=== PATIENT | female | born 1975 | race Two or more races ===

== ENCOUNTER 2017-03-01 09:55 | Emergency (ER) | payer MEDICAID, SELFPAY ==
[~2017-03-01] VITALS: Ht 152.4 cm; Wt 72.1 kg
[2017-03-01] MEDS ORDERED: ONDANSETRON 2MG/ML, 2ML IVPush ONE (11:30)
[2017-03-01] MEDS ORDERED: SODIUM CHLORIDE 0.9% 1,000ML IVBOLUS ONE ×2 (11:30)
[2017-03-01] MEDS ORDERED: MORPHINE SULFATE 4 MG/ML, 1ML IVPush PRN (11:30)
[2017-03-01 11:34] LABS: PH, VENOUS 7.457 pH (7.320-7.420)
[2017-03-01 11:36] LABS: HEMATOCRIT 29.9 % (34.6-47.8); HEMOGLOBIN 9.1 g/dL (11.7-16.4); WHITE BLOOD COUNT 16.4 x10^3/uL (3.4-10)
[2017-03-01 11:48] LABS: ASPARTATE AMINO TRANSFERASE 27 U/L (15-37); BLOOD UREA NITROGEN 6 mg/dL (7-18)
[2017-03-01] MEDS ORDERED: ONDANSETRON 2MG/ML, 2ML ONE (11:50)
[2017-03-01] MEDS ORDERED: MORPHINE SULFATE 4 MG/ML, 1ML ONE (11:50)
[2017-03-01 12:11] LABS: DIFF TOTAL CELLS COUNTED 100 CELL DIFF
[2017-03-01 12:13] LABS: VERIFY COUNTS? YES
[2017-03-01 12:14] LABS: ANISOCYTOSIS 1+; MICROCYTOSIS 2+; POLYCHROMASIA 1+
[2017-03-01 12:32] VITALS: BP 131/78
[2017-03-01 13:53] LABS: PATH.CAST-FLAG NOT PRESENT; SPERM-FLAG NOT PRESENT; SRC-FLAG NOT PRESENT; XTAL-FLAG NOT PRESENT; YLC-FLAG NOT PRESENT
== END 2017-03-01 14:47 | disposition home or self-care (01) ==
LOC: ED 10:54
DX: N30.01 Acute cystitis with hematuria (principal); R73.9 Hyperglycemia, unspecified
CPT/HCPCS: 36415; 80053; 81001; 82010; 82803; 83690; 85025; 87077; 87086; 87186; 96361; 96374; 96375; 99285; J2405; J7030

== ENCOUNTER 2017-04-04 21:38 | Inpatient (IN) | payer MEDICAID ==
[~2017-04-04] VITALS: Ht 152.4 cm; Wt 71.0 kg
[2017-04-04] MEDS ORDERED: SODIUM CHLORIDE FLUSH 10ML SYR IVF ONE (22:00)
[2017-04-04] MEDS ORDERED: SODIUM CHLORIDE 0.9% 1,000ML IVBOLUS ONE ×2 (22:00→23:30)
[2017-04-04 22:15] LABS: PH, VENOUS 7.442 pH (7.320-7.420)
[2017-04-04 22:25] LABS: HEMATOCRIT 34.2 % (34.6-47.8); HEMOGLOBIN 10.6 g/dL (11.7-16.4)
[2017-04-04 22:30] LABS: ASPARTATE AMINO TRANSFERASE 18 U/L (15-37); BLOOD UREA NITROGEN 7 mg/dL (7-18)
[2017-04-04] MEDS ORDERED: ACETAMINOPHEN 500 MG TABLET ONE (23:19)
[2017-04-04] MEDS ORDERED: CEFTRIAXONE PMX 1GM/50ML 50 ML IVPB ONE (23:30)
[2017-04-04] MEDS ORDERED: ACETAMINOPHEN 325 MG TABLET PO ONE (23:30)
[2017-04-04] MEDS ORDERED: ACETAMINOPHEN 500 MG TABLET PO ONE (23:30)
[2017-04-04] MEDS ORDERED: CEFTRIAXONE PMX 1GM/50ML 50 ML ONE (23:43)
[2017-04-05] MEDS ORDERED: SODIUM CHLORIDE 0.9% 1,000 ML IV ONE (01:29)
[2017-04-05] MEDS ORDERED: ONDANSETRON 2MG/ML, 2ML IVPush PRN ×2 (01:30→05:00)
[2017-04-05] MEDS ORDERED: POLYETHYLENE GLYCOL 17 GM PACKET PO PRN (05:00)
[2017-04-05] MEDS ORDERED: DEXTROSE 50%, 50ML SYRINGE IVPush PRN (05:00)
[2017-04-05] MEDS ORDERED: DEXTROSE 4 GM TAB.CHEW PO PRN (05:00)
[2017-04-05] MEDS ORDERED: GLUCAGON 1 MG IM PRN (05:00)
[2017-04-05] MEDS ORDERED: DOCUSATE 100 MG CAPSULE PO PRN (05:00)
[2017-04-05] MEDS ORDERED: PROMETHAZINE 25 MG/ML, 1ML IM PRN (05:00)
[2017-04-05] MEDS ORDERED: BISACODYL 10 MG SUPP PR PRN (05:00)
[2017-04-05] MEDS ORDERED: ACETAMINOPHEN 325 MG TABLET PO PRN (05:00)
[2017-04-05] MEDS: CEFTRIAXONE PMX 1GM/50ML 50 ML IV SCH (05:10)
[2017-04-05] MEDS: INSULIN DETEMIR 100 UNITS/ML, PEN SQ-INSULIN SCH ×2 (05:52→17:19)
[2017-04-05] MEDS: NICOTINE 14MG/24 HR PATCH.TD24 TD SCH (05:52)
[2017-04-05 05:53] VITALS: BP 102/65
[2017-04-05] MEDS: ENOXAPARIN 40 MG/0.4 ML SQ SCH (05:53)
[2017-04-05 06:30] LABS: HEMATOCRIT 34.3 % (34.6-47.8); HEMOGLOBIN 10.6 g/dL (11.7-16.4); WHITE BLOOD COUNT 16.2 x10^3/uL (3.4-10)
[2017-04-05 06:41] LABS: ASPARTATE AMINO TRANSFERASE 26 U/L (15-37); BLOOD UREA NITROGEN 4 mg/dL (7-18); TOTAL IRON BINDING CAPACITY 386 mcg/dL (250-450)
[2017-04-05 07:56] VITALS: BP 111/74
[2017-04-05] MEDS: INSULIN ASPART 100 UNITS/ML, PEN SQ-INSULIN SCH ×4 (08:05→21:06)
[2017-04-05] MEDS ORDERED: POTASSIUM CHLORIDE 20 MEQ TAB.ER.PRT PO ONE (09:30)
[2017-04-05] MEDS: SODIUM CHLORIDE FLUSH 10ML SYR IVF SCH ×2 (11:19→20:57)
[2017-04-05] MEDS: SODIUM CHLORIDE 0.9% 1,000 ML IV SCH ×2 (11:35→20:05)
[2017-04-05] MEDS: FERROUS SULFATE 325 MG TABLET PO SCH ×2 (12:25→17:18)
[2017-04-05 13:35] VITALS: BP 144/79
[2017-04-05 19:18] LABS: OCCBLD OBC PASS
[2017-04-05 20:09] VITALS: BP 149/82
[2017-04-06 02:43] VITALS: BP 142/87
[2017-04-06] MEDS: SODIUM CHLORIDE 0.9% 1,000 ML IV SCH (03:57)
[2017-04-06] MEDS: ENOXAPARIN 40 MG/0.4 ML SQ SCH (04:53)
[2017-04-06] MEDS: CEFTRIAXONE PMX 1GM/50ML 50 ML IV SCH (04:53)
[2017-04-06] MEDS: NICOTINE 14MG/24 HR PATCH.TD24 TD SCH (04:53)
[2017-04-06 05:38] LABS: ASPARTATE AMINO TRANSFERASE 19 U/L (15-37); BLOOD UREA NITROGEN 4 mg/dL (7-18)
[2017-04-06 05:46] LABS: HEMATOCRIT 31.5 % (34.6-47.8); HEMOGLOBIN 9.7 g/dL (11.7-16.4); WHITE BLOOD COUNT 11.6 x10^3/uL (3.4-10)
[2017-04-06] MEDS: INSULIN DETEMIR 100 UNITS/ML, PEN SQ-INSULIN SCH (06:00)
[2017-04-06 07:58] VITALS: BP 120/78
[2017-04-06] MEDS: SODIUM CHLORIDE FLUSH 10ML SYR IVF SCH (09:04)
[2017-04-06] MEDS: INSULIN ASPART 100 UNITS/ML, PEN SQ-INSULIN SCH ×2 (09:04→10:58)
[2017-04-06] MEDS: FERROUS SULFATE 325 MG TABLET PO SCH (09:04)
[2017-04-06] MEDS ORDERED: CIPR500T3 PO (12:04)
[2017-04-06 12:23] VITALS: BP 114/76
== END 2017-04-06 14:42 | disposition home or self-care (01) | DRG 872 ==
LOC: ED 23:04 → EDIP 04-05 01:29 → 4NOR 04-05 02:20
PROVIDERS: ADMIT Internal Medicine; ATTEND Internal Medicine
DX: A41.9 Sepsis, unspecified organism (principal); E11.65 Type 2 diabetes mellitus with hyperglycemia; E87.1 Hypo-osmolality and hyponatremia; N30.90 Cystitis, unspecified without hematuria; D53.9 Nutritional anemia, unspecified; E86.0 Dehydration; Z87.440 Personal history of urinary (tract) infections; Z87.891 Personal history of nicotine dependence; Z91.14 Patient's other noncompliance with medication regimen
CPT/HCPCS: 36415; 71010; 80053; 81001; 82010; 82272; 82803; 82962; 83036; 83540; 83550; 83605; 83735; 84145; 84703; 85025; 87040; 87077; 87086; 87147; 87186; 96361; 96365; 96372; J0696; J1650; J1815; J7030

== ENCOUNTER 2019-08-11 04:14 | Emergency (ER) | payer MEDICAID ==
[~2019-08-11] VITALS: Ht 154.9 cm; Wt 68.8 kg
[~2019-08-11 04:14] MED LIST: CIPR500T3 PO
--- NOTE | 2019-08-11 04:26 | NUR ---
Pt ambulatory to room. Pt reports lower right dental pain x2 days. No fevers or vomiting at home. Poor dentition noted throughout. Pt has been taking advil and tylenol at home. Pt in gown. Call light in place.
[2019-08-11] MEDS ORDERED: LORazepam 1MG TABLET PO ONE (05:00)
[2019-08-11] MEDS ORDERED: KETOROLAC 30 MG/1 ML IM ONE (05:00)
[2019-08-11] MEDS ORDERED: LORazepam 1MG TABLET ONE (05:13)
[2019-08-11] MEDS ORDERED: KETOROLAC 30 MG/1 ML ONE (05:13)
--- NOTE | 2019-08-11 05:27 | NUR ---
Pt medicated per SEP. POC BS 263
--- NOTE | 2019-08-11 05:47 | NUR ---
[place] provided. Assist RN at bedside for US guided PIV.
[2019-08-11 06:00] VITALS: BP 154/86
[2019-08-11] MEDS ORDERED: SODIUM CHLORIDE 0.9% 1,000ML IVBOLUS ONE (06:00)
[2019-08-11] MEDS ORDERED: SODIUM CHLORIDE FLUSH 10ML SYR IVF ONE (06:00)
--- NOTE | 2019-08-11 06:06 | NUR ---
PIV placed by assist RN. Fluids started. Pt aware of need for urine sample.
[2019-08-11 06:27] LABS: MEAN CORPUSCULAR HEMOGLOBIN 18.6 pg (27.0-34.8); MEAN CORPUSCULAR VOLUME 61.9 fL (80-100); MEAN PLATELET VOLUME 8.2 fL (7.4-10.4); PLATELET COUNT 425 x10^3/uL (130-400); RED BLOOD COUNT 4.88 x10^6/uL (3.82-5.3); RED CELL DISTRIBUTION WIDTH 18.3 % (9.6-15.2)
[2019-08-11 06:30] LABS: ALANINE AMINOTRANSFERASE 17 U/L (12-78); ALBUMIN 2.7 g/dL (3.4-5.0); ANION GAP 9 mmol/L (5-15); CHLORIDE 111 mmol/L (98-107); CREATININE 0.64 mg/dL (0.55-1.02)
[2019-08-11 06:33] LABS: ALKALINE PHOSPHATASE 104 U/L (45-117); BILIRUBIN,TOTAL 0.2 mg/dL (0.2-1.0); CALCIUM 8.4 mg/dL (8.5-10.1); TOTAL PROTEIN 7.2 g/dL (6.4-8.2)
--- NOTE | 2019-08-11 06:33 | NUR ---
Pt sleeping on gurney. HR down to 102.
[2019-08-11 06:38] LABS: O2 FLOW 0 L/min; PH, VENOUS 7.399 pH (7.320-7.420)
[2019-08-11 06:47] LABS: ANISOCYTOSIS 1+; BASOPHILS # (AUTO) 0.07 x10^3/uL (0-0.1); BASOPHILS % (AUTO) 1 % (0-1); EOSINOPHILS % (AUTO) 3 % (1-7); HYPOCHROMIA 1+; LYMPHOCYTES # (AUTO) 2.49 x10^3/uL (1-3.4); LYMPHOCYTES % (AUTO) 22 % (22-44); MD MORPH REVIEW ONLY; MICROCYTOSIS 1+; MONOCYTES # (AUTO) 0.86 x10^3/uL (0.2-0.8); MONOCYTES % (AUTO) 8 % (2-9); NEUTROPHILS # (AUTO) 7.47 x10^3/uL (1.8-6.8); NEUTROPHILS % (AUTO) 67 % (42-75)
[2019-08-11 06:48] LABS: <PLATELET ESTIMATE> INCREASED; <PLT MORPHOLOGY> NORMAL PLT MORPH; POLYCHROMASIA 1+
--- NOTE | 2019-08-11 07:01 | NUR ---
BEDSIDE REPORT FROM BRENT ADAMS. PT STILL UNABLE TO PROVIDE URINE SAMPLE, PA NOTIFIED, OK TO CANCEL
--- NOTE | 2019-08-11 07:59 | NUR ---
Patient given discharge instructions and they have confirmed that they understand the instructions. Patient ambulatory with steady gait.
[2019-08-11 08:16] LABS: ACETONE, SERUM Negative (Negative)
== END 2019-08-11 08:01 | disposition home or self-care (01) ==
LOC: ED 07:50
DX: K08.89 Other specified disorders of teeth and supporting structures (principal); E86.0 Dehydration; D64.9 Anemia, unspecified; I10 Essential (primary) hypertension; E11.65 Type 2 diabetes mellitus with hyperglycemia; Z88.9 Allergy status to unspecified drugs, medicaments and biological substances
CPT/HCPCS: 36415; 80053; 82010; 82803; 85025; 96360; 96372; 99283; J1885; J7030; 96361

== ENCOUNTER 2020-01-06 09:01 | Emergency (ER) | payer MEDICAID ==
[~2020-01-06] VITALS: Ht 152.4 cm; Wt 69.0 kg
--- NOTE | 2020-01-06 09:27 | NUR ---
PT PRESENTS TO ED WITH LEFT NECK PAIN, RADIATING TO SHOULDER AND LEFT SIDE OF BACK. PT STATES PAIN BEGAN AFTER MOVING BOXES APPROX ONE WEEK AGO. PT HAS FULL ROM OF NECK AND ARMS. PT IS A&OX4, RESPS EVEN AND UNLABORED, NADN. PT DENIES CP/SOB. PT SEEN BY JOCELYN KENNEDY PT TO HAVE XRAY AND MEDS.
[2020-01-06] MEDS ORDERED: METHOCARBAMOL 750 MG TABLET PO ONE (09:30)
[2020-01-06] MEDS ORDERED: KETOROLAC 30 MG/1 ML IM ONE (09:30)
[2020-01-06] MEDS ORDERED: METHOCARBAMOL 750 MG TABLET ONE (09:35)
[2020-01-06] MEDS ORDERED: KETOROLAC 30 MG/1 ML ONE (09:35)
--- NOTE | 2020-01-06 10:06 | NUR ---
EDMD LAW AT BEDSIDE TO UPDATE PT WITH RESULTS AND POC.
[2020-01-06 10:20] VITALS: BP 152/93
== END 2020-01-06 10:22 | disposition home or self-care (01) ==
LOC: ED 09:45
DX: S43.422A Sprain of left rotator cuff capsule, initial encounter (principal); G89.11 Acute pain due to trauma; M75.32 Calcific tendinitis of left shoulder; X58.XXXA Exposure to other specified factors, initial encounter; Y93.89 Activity, other specified; Y92.89 Other specified places as the place of occurrence of the external cause; Y99.8 Other external cause status
CPT/HCPCS: 73030; 96372; 99283; J1885